=== PATIENT | male | born 1990 | race Hispanic/Latino ===

== ENCOUNTER → 2022-01-27 | Day surgery (SDC) | payer OTHER ==
[~2022-01-27] MED LIST: DEXAMETHASONE SOD PHOS 10 MG/1 ML VIAL ONE; EPINEPHRINE HCL 1:1000 1ML 1 MG/ML AMP ONE; FENTANYL CITRATE/PF 100MCG/2 ML INJ ONE; GLYCOPYRROLATE INJ 0.2 MG/ML VIAL ONE; LIDOCAINE 1% W/EPINEPHRINE 20 ML VIAL ONE; LIDOCAINE HCL 2% JELLY 5 ML TUBE ONE; LIDOCAINE HCL 2% LOCAL INJ 5 ML SDV VIAL INJ ONE; MIDAZOLAM HCL 2 MG/2 ML VIAL ONE; NEOSTIGMINE 1 MG/ML 10ML VIAL ONE; ONDANSETRON HCL INJ 2MG/ML 2ML 2 MG/ML VIAL ONE; POVIDONE IODINE 0.05% 0.05 % ML PO ONE; PROPOFOL IV EMULSION 10 MG/ML 20 ML VIAL ONE; ROCURONIUM BROMIDE 10 MG/ML 5ML VIAL IV ONE; SEVOFLURANE INHAL SOLN 250 ML PEN BTL ONE
[2022-01-27 10:10] VITALS: BP 130/76
== END | disposition home or self-care (01) ==
LOC: OR 05:52
PROVIDERS: ATTEND Otolaryngology Otolaryngology/Facial Plastic Surgery
DX: J32.0 Chronic maxillary sinusitis (principal); J32.2 Chronic ethmoidal sinusitis; J34.89 Other specified disorders of nose and nasal sinuses; J34.2 Deviated nasal septum; Z87.828 Personal history of other (healed) physical injury and trauma
CPT/HCPCS: 30465; 30520; 31255; 31267; 88300; 88305; C1713; J0171; J1100; J2001 ×2; J2250; J2405; J2704; J2710; J3010